=== PATIENT | male | race Asian ===

== ENCOUNTER 2024-06-30 02:15 | Observation (INO) | payer OTHER ==
[2024-06-30] VITALS (11 sets, daily range): BP systolic 104–137; BP diastolic 60–75; PULSE 63–77; TEMP 97–98.4
[~2024-06-30] VITALS: Ht 172.7 cm; Wt 100.4 kg
[2024-06-30] MEDS ORDERED: Morphine 4 MG/ML VIAL IV ONE (02:30)
[2024-06-30 02:31] LABS: BASO # 0.1 K/mm3 (0.0-0.2); BASO % 0.3 % (0.0-2.0); EOS % 0.1 % (0.0-4.0); GRAN # 15.3 K/mm3 (1.4-6.5); GRAN % 86.1 % (42.2-75.2); HEMATOCRIT 44.1 % (42.0-52.0); HEMOGLOBIN 15.8 g/dl (13.5-18.0); LYMPH # 1.8 K/mm3 (1.2-3.4); MEAN CELL VOLUME 88 fl (80.0-100.0); MEAN CORPUSCULAR HEMOGLOBIN 32 pg (27-31); MEAN CORPUSCULAR HGB CONC 36 g/dl (33.0-37.0); MEAN PLATELET VOLUME 9.1 fl (7.4-10.4); MONO # 0.6 K/mm3 (0.1-0.6); MONO % 3.2 % (1.7-9.3); PLATELET COUNT 301 K/mm3 (130-400); REDCELL DISTRIBUTION WIDTH-CV 11.7 % (11.5-14.5)
[2024-06-30 02:51] LABS: ALANINE AMINOTRANSFERASE 48 U/L (0-55); ALBUMIN 4.8 g/dL (3.5-5.0); ALKALINE PHOSPHATASE 73 U/L (40-150); ANION GAP 13 mmol/L (7-16); AST,SGOT 30 U/L (5-34); BILIRUBIN,TOTAL 1.1 mg/dL (0.2-1.2); BLOOD UREA NITROGEN 18 mg/dL (9-21); CALCIUM 9.9 mg/dL (8.4-10.2); CHLORIDE 102 mEq/L (98-107); CREATININE, serum 1.19 mg/dL (0.72-1.25); GLUCOSE 133 mg/dL (70-99); LIPASE 19 U/L (8-78); MAGNESIUM 1.9 mg/dL (1.6-2.6); POTASSIUM 4.2 mEq/L (3.5-4.5); SODIUM 137 mEq/L (136-145); TOTAL PROTEIN 7.7 g/dl (6.2-8.1)
[2024-06-30 02:58] LABS: TROPONIN-I < 0.010 ng/mL (0.00-0.033)
[2024-06-30] MEDS ORDERED: Iohexol 300 - 100 ML VIAL IV ONE (03:20)
[2024-06-30] MEDS ORDERED: NS 50 ML IV ONE (03:21)
[2024-06-30 03:28] LABS: PH 7.5 (5.0-8.5); URINE APPEARANCE CLEAR (CLEAR/HAZY); URINE BLOOD NEGATIVE (NEGATIVE); URINE COLOR YELLOW (YELLOW); URINE GLUCOSE NEGATIVE (NEGATIVE); URINE KETONE 3+ (NEGATIVE); URINE NITRATE NEGATIVE (NEGATIVE); URINE PROTEIN(semi-quant) 1+ (NEGATIVE)
[2024-06-30 03:34] LABS: COLLECTION METHOD CLEAN CATCH
[2024-06-30] MEDS ORDERED: Ondansetron 4 MG/2 ML VIAL IV PRN ×2 (05:00→08:15)
[2024-06-30] MEDS ORDERED: Morphine 4 MG/ML VIAL IV PRN (05:00)
--- NOTE | 2024-06-30 06:34 | NUR ---
SHIFT ASSESSMENT COMPLETED AT THIS TIME. PT A&OX4. PT RESTING IN BED UPON ENTRANCE AND REPORTS 5/10 PAIN LOCATED IN THE ABDOMEN. PRN MORPHINE ADMINISTERED AT THIS TIME. PT DENIES NAUSEA, AND SOB. PT HAS AN INT TO L AC, C,D,I. CALL LIGHT WIHTIN REACH. NPO PRECAUTIONS IN PLACE. PT SCORED A MODERATE RISK ON ADMISSION INTAKE FOR SUICIDAL ASSESSMENT. THIS NURSE NOTIFIED CHARGE NURSE. NO FURTHER NEEDS AT THIS TIME.
--- NOTE | 2024-06-30 07:16 | NUR ---
PATIENT RESTING IN BED. ALERT AND ORIENTED X4. DENIES PAIN AT THIS TIME. REPORTED HAVING RIGHT LOWER QUADRANT PAIN DURING ADMISSION. PATIENT ON ROOM AIR. PATIENT CALL LIGHT WITHIN REACH.BED AT LOWEST POSITON.
[2024-06-30] MEDS ORDERED: ZOCOR5 MG PO (07:34)
[2024-06-30] MEDS ORDERED: DESYREL 100MG100 MG PO (07:34)
[2024-06-30] MEDS ORDERED: PROZAC40 MG PO (07:35)
[2024-06-30] MEDS ORDERED: FLONASE NASAL S16 GM NS (07:38)
[2024-06-30] MEDS ORDERED: NS 10 ML IV ONE (08:10)
[2024-06-30] MEDS ORDERED: fentaNYL 50 MCG/ML 5 ML VIAL ONE (08:10)
[2024-06-30] MEDS ORDERED: Ketorolac 30 MG/ML VIAL ONE (08:10)
[2024-06-30] MEDS ORDERED: Lidocaine PF 2% (20 MG/ML) 5 ML VIAL ONE (08:10)
[2024-06-30] MEDS ORDERED: Ondansetron 4 MG/2 ML VIAL ONE (08:10)
[2024-06-30] MEDS ORDERED: Rocuronium 50 MG/5 ML Multi-Dose VIAL ONE (08:10)
[2024-06-30] MEDS ORDERED: dexAMETHasone 10 MG/ML VIAL ONE (08:10)
[2024-06-30] MEDS ORDERED: hydrALAZINE 20 MG/ML 1 ML VIAL IV PRN (08:15)
[2024-06-30] MEDS ORDERED: droPERidol 2.5 MG/ML 2 ML VIAL IV PRN (08:15)
[2024-06-30] MEDS ORDERED: HYDROmorphone 1 MG/1 ML SYRINGE [PACU/SDC ONLY] IV PRN (08:15)
[2024-06-30] MEDS ORDERED: Morphine 2 MG/1 ML VIAL [PACU/SDC ONLY] IV PRN (08:15)
[2024-06-30] MEDS ORDERED: fentaNYL 50 MCG/ML 1 ML SYRINGE/VIAL [PACU/SDC ONLY] IV PRN (08:15)
[2024-06-30] MEDS ORDERED: Labetalol 100 MG/20 ML Multi-Dose VIAL ONE (08:40)
[2024-06-30] MEDS ORDERED: NORCO 325 MG-51 TAB PO (09:11)
--- NOTE | 2024-06-30 09:50 | NUR ---
PATIENT CAME BACK FROM PROCEDURE. DENIES PAIN AT THIS TIME. VSS WITHIN NORMAL LIMITS. 3 LAP SITE ABD C/D/I. MOTHER AT BEDSIDE. CALL LIGHT WITHIN REACH. POST-OP MACHINE INPLACE.
[2024-06-30] MEDS ORDERED: Propranolol 20 MG TAB PO PRN (10:00)
--- NOTE | 2024-06-30 10:42 | NUR ---
SW met with patient to complete intake. Patient provides he lives in [facility] with mother Kate Deal [phone]. Patient provides that he does not utilize DME, is independent with ADLs, and does not utilize home health services at this time. Patient provides that he does not have a PCP at this time. SW asked patient if he would like to obtain resources for choices for a PCP. Patient provided he did and documenation provided for patient choice. [facility]. Patient provides he does not have anyone appointed as DPOA/HC and did not wish to appoint anyone at this time. Patient states he plans to return to his home upon discharge. SW will continue to follow. Discharge plan: home
--- NOTE | 2024-06-30 12:29 | NUR ---
PATIENT VSS WITHIN NORMAL LIMITS. PATIENT ABLE TO EAT AND DRINK WITHOUT NAUSEA PRESENT. PATIENT ABLE TO VOID WITHOUT DIFFICULTY. CALL LIGHT WITHIN REACH. BED ALARM ON.
--- NOTE | 2024-06-30 13:10 | NUR ---
PATIENT DISCHARGE INSTRUCTIONS GIVEN. PATIENT VERBALIZED UNDERSTANDING AND QUESTIONS WERE ANSWERED.FAMILY AT BEDSIDE. PATIENT IV DISCONTINUED. PATIENT ESCORTED OUT OF UNIT BY [facility] ACCOMPANIED BY PATIENT FAMILY.
== END 2024-06-30 13:16 | disposition home or self-care (01) ==
LOC: EDSEX 02:15 → COL.ER 02:15 → SURG 04:36 → EDBD 13:16 → SURG 13:16
PROVIDERS: Emergency Medicine; ADMIT Surgery
DX: K35.80 Unspecified acute appendicitis (principal); E78.00 Pure hypercholesterolemia, unspecified; F41.9 Anxiety disorder, unspecified; F32.A Depression, unspecified; Z79.899 Other long term (current) drug therapy
CPT/HCPCS: G0378; J0690; J1100; J1885; J1920; J2270; J2405; J2543; J2704; J3010; Q9967